=== PATIENT | female | born 1990 | race Caucasian/White ===

== ENCOUNTER 2022-10-13 01:20 | Inpatient (IN) ==
--- NOTE | 2022-10-13 01:26 | Emergency Department Note ---
History of Present Illness General Chief complaint: Respiratory Problems Stated complaint: HAVING A HARD TIME BREATHING Time Seen by Provider: 10/13/22 01:24 History of Present Illness This 32-year-old female patient presents to the emergency department for difficulty breathing since yesterday. She has also been feeling "under the weather" like she is getting sick since yesterday. Mild cough. Fever 101 F max at home. She has a pulse ox at home and it was 84%, but improved to 94% after rest. Her SOB is worse with movement or any exertion. She has a history of wheezing and used her albuterol inhaler at home, but it only worked for about 1 hour. Quit smoking in July. Has a history of Von-Willebrand's. The patient denies recent long car or plane rides or recent injury/trauma/surgery. Denies any personal or family history of blood clots or bleeding disorders. Denies any hormonal medication use. Denies any hemoptysis or calf pain. Denies any chest pain, abdominal pain, nausea, or vomiting. Took a home COVID test that was negative. Home Medications Medication Instructions Recorded Confirmed Type albuterol sulfate 90 mcg/actuation 2 puff inhalation Q6 PRN Shortness 10/13/22 10/13/22 History aerosol inhaler Of Breath Or Wheezing Allergies Allergy/AdvReac Type Severity Reaction Status Date / Time Penicillins Allergy Intermediate Rash Verified 03/17/21 00:58 Sulfa (Sulfonamide Allergy Intermediate Rash Verified 03/17/21 00:58 Antibiotics) Past Med/Surg History Medical History Actinic keratosis Anxiety Chronic back pain Elevated TSH Von Willebrands disease diagnosed at age 7 Surgical History History of back surgery x 2 S/P exploratory laparotomy S/P tonsillectomy Social History Smoking Status: Former smoker Tobacco Type: Cigarettes Age Started Using Tobacco: 12; packs per day: 0.5; Hx Alcohol Use: Yes Alcohol Intake Frequency: Monthly or Less Hx Substance Use: No Preferred Language: Occitan marital status: Single Current Living Situation: Other Current Living Situation Comment: boyfriend current occupational status: employed current occupation: Nurse Feels Safe at Home: Yes Childhood Exposure to Second-Hand Smoke: Yes Dental Care, Regularly: Yes Physical Activity Frequency: Daily Physical Activity Frequency Comment: working Seatbelt Use: always Sunscreen Use: Yes Review of Systems See HPI for pertinent positives & negatives. Physical Exam Vital Signs Vital Signs - 24 hr 10/13/22 01:22 10/13/22 01:39 10/13/22 01:50 Temperature 36.5 C Temperature Source Temporal Artery Scan Pulse Rate 96 H 123 H Pulse Rate [Right Finger] Pulse Rate from SpO2 Sensor Pulse Rhythm Regular Respiratory Rate 24 Respiratory Effort / Characteristics Spontaneous Labored Short of Breath SOB on Exertion Respiratory Depth Shallow Respiratory Pattern Regular Blood Pressure 155/88 H Blood Pressure Mean 110 Blood Pressure Position Sitting Pulse Oximetry 98 Oxygen Delivery Method Room Air Sepsis Recent Fever Within 48 Hours Yes Sepsis New/Unexplained Change in Mental Status No Sepsis Action Taken by Nursing No Action Required 10/13/22 02:01 10/13/22 02:21 10/13/22 02:30 Temperature Temperature Source Pulse Rate 113 H 121 H 114 H Pulse Rate [Right Finger] Pulse Rate from SpO2 Sensor 123 H 113 H Pulse Rhythm Respiratory Rate 25 H 20 16 Respiratory Effort / Characteristics Respiratory Depth Respiratory Pattern Blood Pressure 121/73 136/76 Blood Pressure Mean 89 96 Blood Pressure Position Pulse Oximetry 91 96 96 Oxygen Delivery Method Room Air Room Air Room Air Sepsis Recent Fever Within 48 Hours Sepsis New/Unexplained Change in Mental Status Sepsis Action Taken by Nursing 10/13/22 03:01 10/13/22 03:40 10/13/22 03:30 Temperature Temperature Source Pulse Rate 115 H 129 H Pulse Rate [Right Finger] 119 H Pulse Rate from SpO2 Sensor 115 H 131 H Pulse Rhythm Respiratory Rate 23 18 16 Respiratory Effort / Characteristics Spontaneous Short of Breath Respiratory Depth Respiratory Pattern Blood Pressure 174/94 H 176/99 H Blood Pressure Mean 120 124 Blood Pressure Position Pulse Oximetry 95 95 96 Oxygen Delivery Method Room Air Room Air Nebulizer Sepsis Recent Fever Within 48 Hours Sepsis New/Unexplained Change in Mental Status Sepsis Action Taken by Nursing 10/13/22 04:00 10/13/22 04:30 10/13/22 05:00 Temperature Temperature Source Pulse Rate 116 H 120 H 125 H Pulse Rate [Right Finger] Pulse Rate from SpO2 Sensor 116 H 119 H 125 H Pulse Rhythm Respiratory Rate 20 24 21 Respiratory Effort / Characteristics Respiratory Depth Respiratory Pattern Blood Pressure 147/73 H 139/78 135/58 L Blood Pressure Mean 97 98 83 Blood Pressure Position Pulse Oximetry 99 95 91 Oxygen Delivery Method Room Air Room Air Sepsis Recent Fever Within 48 Hours Sepsis New/Unexplained Change in Mental Status Sepsis Action Taken by Nursing 10/13/22 05:30 10/13/22 05:59 10/13/22 06:17 Temperature Temperature Source Pulse Rate 122 H 123 H Pulse Rate [Right Finger] 120 H Pulse Rate from SpO2 Sensor 123 H Pulse Rhythm Respiratory Rate 21 18 Respiratory Effort / Characteristics Spontaneous Short of Breath Respiratory Depth Respiratory Pattern Blood Pressure 136/58 L Blood Pressure Mean 84 Blood Pressure Position Pulse Oximetry 90 91 Oxygen Delivery Method Room Air Room Air Sepsis Recent Fever Within 48 Hours Sepsis New/Unexplained Change in Mental Status Sepsis Action Taken by Nursing Vital Signs: Vitals are noted on the nurse's note and reviewed by myself. GENERAL: The patient is in moderate respiratory distress. She is having trouble walking without getting very short of breath. She is also unable to talk in complete sentences due to her shortness of breath. Non toxic in appearance and in no acute distress. SKIN: Capillary reflex less than 2 seconds. HEAD: Normocephalic, atraumatic. EARS: External auditory canals clear, tympanic membrane pearly vásquez without erythema or effusion. No tragus tenderness. No mastoid tenderness. EYES: Pupils equal round and reactive to light and accommodation. Conjunctivae without injection, sclerae without icterus. Extraocular movements intact. NOSE: Patent, turbinates inflamed with no discharge. No sinus tenderness. MOUTH: Mucous membranes moist. Airway patent, uvula midline. Tonsils are not enlarged and not erythematous without exudate. Pharynx without postnasal drip. No evidence for peritonsillar abscess. NECK: Supple without nuchal rigidity. No lymphadenopathy.. HEART: Tachycardic without murmurs gallops or rubs. LUNGS: The patient is in moderate respiratory distress. She has accessory muscle use and retractions. She is tachypneic. She is unable to walk without significant shortness of breath. Unable to speak in complete sentences. Wheezes throughout all lung muñoz as well as audible wheezing. No rales or rhonchi. ABDOMEN: Positive bowel sounds x 4. Normal tympanic percussion. Soft, nontender, without masses or organomegaly. NEURO: Patient was alert and oriented to person place and time. Course Administered Medications Discontinued Medications Albuterol (Albut/Ipratrop 3mg/0.5mg Neb 3 Ml Vial) Confirm Administered Dose 3 ml .ROUTE .STK-MED ONE Stop: 10/13/22 01:33 Last Admin: 10/13/22 01:43 Dose: 3 ml Documented By: SABINE Albuterol (Albut/Ipratrop 3mg/0.5mg Neb 3 Ml Vial) 3 ml NEB NOW STA; Protocol Stop: 10/13/22 01:51 Last Admin: 10/13/22 02:00 Dose: 3 ml Documented By: SABINE Albuterol (Albut/Ipratrop 3mg/0.5mg Neb 3 Ml Vial) 3 ml NEB NOW STA; Protocol Stop: 10/13/22 01:51 Last Admin: 10/13/22 02:27 Dose: Not Given Documented By: SABINE Albuterol (Albuterol 0.083% Nebu Soln 3 Ml Vial) 10 mg NEB NOW STA; Protocol Stop: 10/13/22 03:24 Last Admin: 10/13/22 03:40 Dose: 10 mg Documented By: SANJUANITA Albuterol (Albuterol 0.083% Nebu Soln 3 Ml Vial) 10 mg NEB NOW STA; Protocol Stop: 10/13/22 06:03 Last Admin: 10/13/22 06:15 Dose: 10 mg Documented By: SANJUANITA Sodium Chloride (Nss 1000ml) 1,000 mls @ 999 mls/hr IV .Q1H1M ONE Stop: 10/13/22 02:41 Last Infusion: 10/13/22 03:02 Dose: 0 mls/hr Documented By: Admin: 10/13/22 02:00 Dose: 999 mls/hr Documented By: SABINE Sodium Chloride (Nss 1000ml) 1,000 mls @ 999 mls/hr IV .Q1H1M STA Stop: 10/13/22 07:00 Last Admin: 10/13/22 06:23 Dose: 999 mls/hr Documented By: SABINE Methylprednisolone (Methylprednisolone 125 Mg/2 Ml Vial) 125 mg IV NOW STA Stop: 10/13/22 02:30 Last Admin: 10/13/22 02:35 Dose: 125 mg Documented By: SABINE Medical Decision Making Differential Diagnosis Differential diagnosis includes URI, bronchitis, pneumonia, pneumothorax, hemot horax, PE, KS, pericarditis, myocarditis, airway obstruction, aspiration, pulmonary edema, asthma, COPD, CHF, pleurisy, metabolic acidosis, anemia, neoplasm, or others. Laboratory Data Attestation: I reviewed the patient's lab results. 10/13/22 01:56 10/13/22 01:56 Lab Results 10/13/22 10/13/22 10/13/22 Range/Units 01:56 01:56 01:56 WBC 12.45 H (4.8-10.8) K/ul RBC 4.43 (4.20-5.40) M/uL Hgb 13.4 (12.0-16.0) g/dl Hct 38.9 (37.0-47.0) % MCV 87.8 (80.0-100.0) fL MCH 30.2 (25.0-34.0) pg MCHC 34.4 (32.0-36.0) g/dL RDW Std Deviation 41.2 (36.4-46.3) fL RDW Coeff of Vinnie 13.0 (11.5-14.5) % Plt Count 273 (130-400) K/uL MPV 10.2 (9.4-12.4) fL Immature Gran % (Auto) 0.4 % Neut % (Auto) 81.5 % Lymph % (Auto) 11.5 % [place] % (Auto) 5.3 % Eos % (Auto) 1.0 % Baso % (Auto) 0.3 % Neut # (Auto) 10.14 H (1.40-6.50) K/uL Lymph # (Auto) 1.43 (1.2-3.4) K/uL [place] # (Auto) 0.66 H (0.11-0.59) K/uL Eos # (Auto) 0.13 (0-0.50) K/uL Baso # (Auto) 0.04 (0-0.2) K/uL Immature Gran # (Auto) 0.05 (0.01-0.20) K/uL Sodium 136 (136-145) mmol/L Potassium 3.8 (3.5-5.1) mmol/L Chloride 104 (98-107) mmol/L Carbon Dioxide 22 (21-32) mmol/L Anion Gap 10 (3-11) BUN 8 (6-23) mg/dl Creatinine 0.56 L (0.6-1.2) mg/dl Est Cr Clr Drug Dosing 194.9 ml/min Est GFR ( Amer) 143.0 ml/min Est GFR (Non-Af Amer) 123.4 ml/min BUN/Creatinine Ratio 14.3 (10-20) Glucose 96 (70-99(Fasting)) mg/dl Calcium 8.8 (8.6-10.3) mg/dl Magnesium 1.6 L (1.7-2.4) mg/dl Total Bilirubin 0.5 (0.2-1.0) mg/dl AST 36 (13-39) U/L ALT 39 (7-52) U/L Alkaline Phosphatase 95 (34-104) U/L Total Protein 7.8 (6.0-8.3) gm/dl Albumin 4.3 (3.4-5.0) gm/dl Globulin 3.5 (2.5-4.0) gm/dl Albumin/Globulin Ratio 1.2 (0.9-2) TSH (0.300-4.500) uIu/ml Free T4 (0.61-1.60) ng/dl Urine Color Yellow Urine Appearance Clear (Clear) Urine pH 6.0 (4.5-7.5) Ur Specific [place] 1.005 (1.000-1.030) Urine Protein Negative (Negative) Urine Glucose (UA) Negative (Negative) Urine Ketones Negative (Negative) Urine Blood Negative (Negative) Urine Nitrite Negative (Negative) Urine Bilirubin Negative (Negative) Urine Urobilinogen Negative (Negative) Ur Leukocyte Esterase Negative (Negative) Urine Test (Negative) Adenovirus (PCR) (NotDetected) B. pertussis DNA (PCR) (NotDetected) B.parapertussis DNA PCR (NotDetected) C. pneumoniae DNA (PCR) (NotDetected) Coronavirus OC43 (PCR) (NotDetected) Coronavirus HKU1 (PCR) (NotDetected) Coronavirus 229E (PCR) (NotDetected) SARS-CoV-2 (PCR) (NotDetected) Coronavirus NL63 (PCR) (NotDetected) Human Metapneumovir PCR (NotDetected) Influenza Type A (PCR) (NotDetected) Influenza Type B (PCR) (NotDetected) M. pneumoniae (PCR) (NotDetected) Parainfluenza 1 (PCR) (NotDetected) Parainfluenza 2 (PCR) (NotDetected) Parainfluenza 3 (PCR) (NotDetected) Parainfluenza 4 (PCR) (NotDetected) RSV (PCR) (NotDetected) Entero/Rhino (PCR) (NotDetected) 10/13/22 10/13/22 10/13/22 Range/Units 01:56 01:56 02:37 WBC (4.8-10.8) K/ul RBC (4.20-5.40) M/uL Hgb (12.0-16.0) g/dl Hct (37.0-47.0) % MCV (80.0-100.0) fL MCH (25.0-34.0) pg MCHC (32.0-36.0) g/dL RDW Std Deviation (36.4-46.3) fL RDW Coeff of Vinnie (11.5-14.5) % Plt Count (130-400) K/uL MPV (9.4-12.4) fL Immature Gran % (Auto) % Neut % (Auto) % Lymph % (Auto) % [place] % (Auto) % Eos % (Auto) % Baso % (Auto) % Neut # (Auto) (1.40-6.50) K/uL Lymph # (Auto) (1.2-3.4) K/uL [place] # (Auto) (0.11-0.59) K/uL Eos # (Auto) (0-0.50) K/uL Baso # (Auto) (0-0.2) K/uL Immature Gran # (Auto) (0.01-0.20) K/uL Sodium (136-145) mmol/L Potassium (3.5-5.1) mmol/L Chloride (98-107) mmol/L Carbon Dioxide (21-32) mmol/L Anion Gap (3-11) BUN (6-23) mg/dl Creatinine (0.6-1.2) mg/dl Est Cr Clr Drug Dosing ml/min Est GFR ( Amer) ml/min Est GFR (Non-Af Amer) ml/min BUN/Creatinine Ratio (10-20) Glucose (70-99(Fasting)) mg/dl Calcium (8.6-10.3) mg/dl Magnesium (1.7-2.4) mg/dl Total Bilirubin (0.2-1.0) mg/dl AST (13-39) U/L ALT (7-52) U/L Alkaline Phosphatase (34-104) U/L Total Protein (6.0-8.3) gm/dl Albumin (3.4-5.0) gm/dl Globulin (2.5-4.0) gm/dl Albumin/Globulin Ratio (0.9-2) TSH 7.570 H (0.300-4.500) uIu/ml Free T4 0.83 (0.61-1.60) ng/dl Urine Color Urine Appearance (Clear) Urine pH (4.5-7.5) Ur Specific [place] (1.000-1.030) Urine Protein (Negative) Urine Glucose (UA) (Negative) Urine Ketones (Negative) Urine Blood (Negative) Urine Nitrite (Negative) Urine Bilirubin (Negative) Urine Urobilinogen (Negative) Ur Leukocyte Esterase (Negative) Urine Test Negative (Negative) Adenovirus (PCR) Not Detected (NotDetected) B. pertussis DNA (PCR) Not Detected (NotDetected) B.parapertussis DNA PCR Not Detected (NotDetected) C. pneumoniae DNA (PCR) Not Detected (NotDetected) Coronavirus OC43 (PCR) Not Detected (NotDetected) Coronavirus HKU1 (PCR) Not Detected (NotDetected) Coronavirus 229E (PCR) Not Detected (NotDetected) SARS-CoV-2 (PCR) Not Detected (NotDetected) Coronavirus NL63 (PCR) Not Detected (NotDetected) Human Metapneumovir PCR Not Detected (NotDetected) Influenza Type A (PCR) Not Detected (NotDetected) Influenza Type B (PCR) Not Detected (NotDetected) M. pneumoniae (PCR) Not Detected (NotDetected) Parainfluenza 1 (PCR) Not Detected (NotDetected) Parainfluenza 2 (PCR) Not Detected (NotDetected) Parainfluenza 3 (PCR) Not Detected (NotDetected) Parainfluenza 4 (PCR) Not Detected (NotDetected) RSV (PCR) Not Detected (NotDetected) Entero/Rhino (PCR) DETECTED A* (NotDetected) Imaging Data My Impression: Chest x-ray interpreted by myself and Dr. Anderson as negative for acute cardiopulmonary etiology. Radiology report still pending. MDM Narrative I examined the patient as soon as the patient was taken back to a room from triage. The patient is in moderate respiratory distress. The patient states that she has never officially been diagnosed with asthma, but has used albuterol frequently in the past for wheezing and trouble breathing. Continuous pulse ox was placed and she was tachycardic at 144 bpm, tachypneic, and hypoxic at 77% on room air. The patient was given a DuoNeb treatment with improvement of her heart rate to 122 and improvement of her pulse ox to 93% shortly after starting the DuoNeb treatment. After completion of the DuoNeb treatment I rechecked her lungs with significant improvement of her wheezing, but persisting scattered wheezes. Her retractions resolved, but she still had accessory muscle use. Still having trouble talking complete sentences, but was able to increase the nu mber of words she was able to say before getting short of breath. She now appeared in mild respiratory distress. She was given a second DuoNeb treatment with resolution of the wheezing and significant improvement subjectively as well as objectively. The patient was given Solu-Medrol 125 mg IV. Now that the patient was no longer in respiratory distress, the remainder of the workup was initiated. Continuous compliance monitor: Order was placed for continuous compliance monitor. Patient was placed on the compliance monitor and continuous pulse ox. Patient was noted to be in sinus tachycardia at an initial rate of 122 bpm per my interpretation. An IV lock was placed and labs were drawn. She was given 1 L normal saline solution bolus. White blood cell count elevated at 12.45. Hemoglobin normal at 13.4. CMP essentially normal. Magnesium slightly low at 1.6. TSH elevated at 7.570 - she states that she has not been taking her medication as prescribed. Urinalysis negative for UTI. Urine test negative. [facility] respiratory panel was positive for rhinovirus, but otherwise negative. Chest x-ray interpreted by myself and Dr. Anderson as negative for acute cardiopulmonary etiology. Radiology report still pending. The patient's wheezing and shortness of breath returned despite the 2 DuoNeb treatments and Solu-Medrol. Therefore, she was given an hour-long albuterol nebulizer. She did feel improved after the hour-long nebulizer, but symptoms only lasted for approximately 15 to 20 minutes before she started to feel short of breath and feel like her breathing was becoming worse. The patient was able to produce a sputum culture which was sent and is pending. The patient declined CTA of her chest for evaluation of PE or other cardiopulmonary etiology. The patient does have a history of von Willebrand's and otherwise denies risk factors for PE. The patient is tachycardic and was initially hypoxic secondary to the asthma exacerbation. She did remain tachycardic, but has also had 2 DuoNeb treatments as well as an hour-long albuterol nebulizer. I had a meaning ful discussion about this patient with Dr. Anderson who agrees with my assessment and the treatment plan. We feel the patient requires admission for further evaluation and treatment due to status asthmaticus that was likely triggered due to her rhinovirus infection. I spoke to the on-call hospitalist who agreed to admit the patient for further evaluation and treatment. Please refer to their dictation for further details. The patient did request another hour-long albuterol nebulizer prior to admission due to return of her wheezing on exam and increasing shortness of breath. The patient's care was transferred in stable condition. Impression & Plan Shortness of breath, Von Willebrands disease, Diffuse wheezing Discharge Plan Visit Data Chief Complaint: Respiratory Problems Stated Complaint: HAVING A HARD TIME BREATHING ED Provider: Maciej Anderson ED Midlevel Provider: Chayito Lemus Discharge Problem: Shortness of breath, Von Willebrands disease, Diffuse wheezing Patient Disposition: Admitted As Inpatient Condition: Good Forms Stand Alone Forms: My [employer] Prescriptions Prescriptions: No Action albuterol sulfate 90 mcg/actuation HFA aerosol inhaler 2 puff INHALATION Q6 PRN (Reason: Shortness Of Breath Or Wheezing) Referrals Referrals: Kash Brennan CRNP [Primary Care Provider] -
[2022-10-13] MEDS ORDERED: ALBUT/IPRATROP 3MG/0.5MG NEB 3 ML VIAL ONE (01:32)
[2022-10-13] MEDS ORDERED: SODIUM CHLORIDE 0.9% 1000ML 1,000 ML IV ONE (01:41)
[2022-10-13] MEDS ORDERED: ALBUT/IPRATROP 3MG/0.5MG NEB 3 ML VIAL NEB STA ×2 (01:50)
[2022-10-13] MEDS ORDERED: methylPREDNISolone 125 MG/2 ML VIAL IV STA (02:29)
[2022-10-13 02:42] LABS: Appearance Urine Clear (Clear); Bilirubin Urine Negative (Negative); Blood Urine Negative (Negative); Color Urine Yellow; Glucose Urine UA Negative (Negative); Ketones Urine Negative (Negative); Leukocyte Esterase Urine Negative (Negative); Nitrite Urine Negative (Negative); Protein Urine Negative (Negative); Specific Gravity Urine 1.005 (1.000-1.030); Urobilinogen Urine Negative (Negative)
[2022-10-13 02:45] LABS: Pregnancy Test, Urine Negative (Negative)
[2022-10-13 02:58] LABS: Basophils # (auto) 0.04 K/uL (0-0.2); Basophils % (auto) 0.3 %; Eosinophils # (auto) 0.13 K/uL (0-0.50); Hematocrit (blood only) 38.9 % (37.0-47.0); Hemoglobin 13.4 g/dl (12.0-16.0); Immature Granulocytes # (auto) 0.05 K/uL (0.01-0.20); Immature Granulocytes % (auto) 0.4 %; Lymphocytes # (auto) 1.43 K/uL (1.2-3.4); Lymphocytes % (auto) 11.5 %; Mean Corpuscular Hemoglobin 30.2 pg (25.0-34.0); Mean Corpuscular Hgb Conc 34.4 g/dL (32.0-36.0); Mean Corpuscular Volume 87.8 fL (80.0-100.0); Mean Platelet Volume 10.2 fL (9.4-12.4); Monocytes # (auto) 0.66 K/uL (0.11-0.59); Monocytes % (auto) 5.3 %; Neutrophils # (auto) 10.14 K/uL (1.40-6.50); Neutrophils % (auto) 81.5 %; Platelet Count 273 K/uL (130-400); RDW Standard Deviation 41.2 fL (36.4-46.3); Red Blood Count 4.43 M/uL (4.20-5.40); White Blood Count 12.45 K/ul (4.8-10.8)
[2022-10-13 03:01] LABS: Albumin Globulin Ratio 1.2 (0.9-2); Albumin Level 4.3 gm/dl (3.4-5.0); BUN Creatinine Ratio 14.3 (10-20); Bilirubin,Total 0.5 mg/dl (0.2-1.0); Calcium 8.8 mg/dl (8.6-10.3); Creatinine Clr Calc Pharmacy 194.9 ml/min; Est GFR (Non-African American) 123.4 ml/min; Globulin 3.5 gm/dl (2.5-4.0); Magnesium 1.6 mg/dl (1.7-2.4); Potassium 3.8 mmol/L (3.5-5.1); Total Protein 7.8 gm/dl (6.0-8.3)
[2022-10-13] MEDS ORDERED: ALBUTEROL 0.083% NEBU SOLN 3 ML VIAL NEB STA ×2 (03:23→06:02)
[2022-10-13 03:29] LABS: Adenovirus PCR Not Detected (NotDetected); Bordetella parapertussis PCR Not Detected (NotDetected); Bordetella pertussis PCR Not Detected (NotDetected); Chlamydia pneumoniae PCR Not Detected (NotDetected); Coronavirus 229E PCR Not Detected (NotDetected); Coronavirus CoV-2 (COVID19)PCR Not Detected (NotDetected); Coronavirus HKU1 PCR Not Detected (NotDetected); Coronavirus NL63 PCR Not Detected (NotDetected); Coronavirus OC43PCR Not Detected (NotDetected); Human Metapneumovirus PCR Not Detected (NotDetected); Influenza A PCR Not Detected (NotDetected); Influenza B PCR Not Detected (NotDetected); Mycoplasma pneumoniae PCR Not Detected (NotDetected); Parainfluenza Virus 1 PCR Not Detected (NotDetected); Parainfluenza Virus 2 PCR Not Detected (NotDetected); Parainfluenza Virus 3 PCR Not Detected (NotDetected); Parainfluenza Virus 4 PCR Not Detected (NotDetected); Respiratory Syncytial VirusPCR Not Detected (NotDetected)
[2022-10-13 04:34] LABS: Thyroid Stimulating Hormone 7.57 uIu/ml (0.300-4.500)
[2022-10-13 04:45] LABS: Rhinovirus/Enterovirus PCR DETECTED (NotDetected)
[2022-10-13 05:15] LABS: T4 Free Thyroxine 0.83 ng/dl (0.61-1.60)
--- NOTE | 2022-10-13 05:52 | History & Physical Report ---
Date of Service October 13, 2022 Assessment & Plan (1) Sepsis: Plan: Elevated WBC count and tachycardia, meets criteria for sepsis. Suspected secondary to pulmonary infection, possibly 2/2 rhinoenterovirus infection? UA without evidence of infection. Sputum culture and blood cultures collected. Lactate and procal ordered by this provider, pending. Given fevers at home and tachycardia will also give another 1L NSS bolus to account for insensible losses. Also could have CAP, for now will cover with ceftriaxone/azithromycin. Procalcitonin pending. MRSA swab ordered, can add vancomycin if positive. Offered CTA Chest both to evaluate for remote possibility of PE (tachycardia, SOB, hypoxia at home), as well as pneumonia not well visualized on CXR. Patient declines at this time, due to concern about not having insurance. We discussed that I would have a low threshold for imaging if her symptoms continue without improvement with Abx, breathing treatments (Duonebs scheduled and prn), and steroids (methylpred 40 IV BID), which she agreed to. Also provided information in insurance by ER Case Management. (2) Shortness of breath: Plan: See above (3) Von Willebrands disease: Plan: History of, would be highly unlikely to have PE with Hx vWD, however not impossible. Telemetry shows tachycardia, regular appearing. EKG ordered. (4) Elevated TSH: Plan: TSH elevated but FT4 normal on ER labwork; defer levothyroxine to PCP. History of Present Illness Chief Complaint: Shortness of breath Primary Care Provider: TIA Almaguer 32-year-old female past medical history significant for von Willebrand's disease, anxiety presented to the ER for shortness of breath that has developed over the last 48 hours. She tried her albuterol inhaler at home, however, this provided very short relief. She also notes that she has a pulse ox at home, and went down into the mid 80s with ambulation. Due to this, she reported to the ER. In the ER patient was noted to be tachycardic, saturating to 90% on room air. Received IV methylprednisolone and albuterol nebulizers by ER provider, as well as 1 L of saline. Lab work notable for WBC count of 12.45 with neutrophilic predominance, magnesium 1.6, TSH 7.570 with a free T4 of 0.83. UA without evidence of infection, respiratory bio fire positive for rhino en terovirus. Chest x-ray performed without obvious focal consolidation. Hospitalist service was consulted for ongoing dyspnea. Patient reports a history of smoking daily starting at age 15, and quitting about 3 months ago. She denies any known history of asthma, but does endorse that she has had profound wheezing and trouble breathing in the past with viral infections. She notes that she does not have insurance and is worried about the cost of escalated imaging such as CT scan. She denies chest pain, abdominal pain, nausea. She does endorse fevers at home in the last couple of days. Allergies Allergy/AdvReac Type Severity Reaction Status Date / Time Penicillins Allergy Intermediate Rash Verified 03/17/21 00:58 Sulfa (Sulfonamide Allergy Intermediate Rash Verified 03/17/21 00:58 Antibiotics) Home Medications Medication Instructions Recorded Confirmed Type albuterol sulfate 90 mcg/actuation 2 puff inhalation Q6 PRN Shortness 10/13/22 10/13/22 History aerosol inhaler Of Breath Or Wheezing Past Med/Surg History Medical History Actinic keratosis Anxiety Chronic back pain Elevated TSH Von Willebrands disease diagnosed at age 7 Surgical History History of back surgery x 2 S/P exploratory laparotomy S/P tonsillectomy Social History Smoking Status: Former smoker Tobacco Type: Cigarettes Age Started Using Tobacco: 12; packs per day: 0.5; Hx Alcohol Use: Yes Alcohol Intake Frequency: Monthly or Less Hx Substance Use: No Preferred Language: Iraqi marital status: Single Current Living Situation: Other Current Living Situation Comment: boyfriend current occupational status: employed current occupation: Nurse Feels Safe at Home: Yes Childhood Exposure to Second-Hand Smoke: Yes Dental Care, Regularly: Yes Physical Activity Frequency: Daily Physical Activity Frequency Comment: working Seatbelt Use: always Sunscreen Use: Yes Review of Systems Review of Systems: All systems reviewed & are unremarkable except as noted in Subjective Physical Exam Constitutional: WD/WN, vitals as above Respiratory: Normal respiratory effort, diffuse expiratory wheezes heard throughout, bibasilar crackles Cardiovascular: Regular rhythm, tachycardic, no murmurs, no pitting edema Gastrointestinal (Abdomen): normal bowel sounds, soft, nontender, no hepatosplenomegaly Skin: no rashes, warm and dry Psychiatric: A+Ox3, euthymic affect Results & Data Results & Data Vital Signs (Past 12 Hours) Vital Signs Temp Pulse Pulse Resp BP Pulse Ox O2 Del Method 10/13/22 05:30 122 H 21 136/58 L 90 Room Air 10/13/22 05:00 125 H 21 135/58 L 91 Room Air 10/13/22 04:30 120 H 24 139/78 95 Room Air 10/13/22 04:00 116 H 20 147/73 H 99 10/13/22 03:30 129 H 16 176/99 H 96 Nebulizer 10/13/22 03:40 119 H 18 95 Room Air 10/13/22 03:01 115 H 23 174/94 H 95 Room Air 10/13/22 02:30 114 H 16 136/76 96 Room Air 10/13/22 02:21 121 H 20 121/73 96 Room Air 10/13/22 02:01 113 H 25 H 91 Room Air 10/13/22 01:50 123 H 10/13/22 01:22 36.5 C 96 H 24 155/88 H 98 Room Air PG Care Time/CCT Total # of Minutes Spent Total Time Spent with Patient: Total time spent is greater than 50% in coordination of care (as documented) at patient's floor/unit and/or counseling patient: Coding Level of Care Code 27279 INT INP/OBS CARE 3/75MIN Diagnoses Sepsis A41.9 Shortness of breath R06.02 Von Willebrands disease D68.0 Elevated TSH R79.89
[2022-10-13] MEDS ORDERED: SODIUM CHLORIDE 0.9% 1000ML 1,000 ML IV STA (06:00)
--- NOTE | 2022-10-13 07:31 | XRay Report ---
XR chest 1V portable CLINICAL HISTORY: Dyspnea, COMPARISON STUDY: Chest radiograph March 17, 2021. FINDINGS: Lung volumes are normal. There is no pneumothorax or pleural effusion. Cardiac size is norm al. There is asymmetric prominence of the left hilum and suspected mild multifocal airspace opacities within the left lung. There is no lobar consolidation. There is no evidence for pulmonary edema. IMPRESSION: 1. Suspected subtle asymmetric left lung airspace opacities. The findings may reflect pneumonia. Radi ographic follow-up is recommended to ensure resolution. This finding will be called/faxed to ordering provider at time of dictation. 2. Interval development of asymmetric prominence of the left hilum. This is nonspecific but could be due to lymphadenopathy or superimposed airspace disease. This can be assessed on follow-up chest radi ograph. ACT 112: Negative or not required by law. Electronically signed by: Don Holbrook M.D. 10/13/2022 7:29 AM
[2022-10-13] MEDS ORDERED: MAGNESIUM SULFATE / D5W 1 GM/100 ML BAG IV ONE (08:45)
[2022-10-13] MEDS: SODIUM CHLORIDE 0.9% 1000ML 1,000 ML IV SCH ×2 (09:20→18:43)
[2022-10-13] MEDS: methylPREDNISolone 40 MG in SYRINGE 0 ML IV SCH ×2 (09:20→20:51)
[2022-10-13] MEDS: cefTRIAXone SODIUM 2,000 MG in DEXTROSE 5% AD-VAN 50 ML IV SCH (09:20)
[2022-10-13] MEDS: AZITHROMYCIN 500 MG in DEXTROSE 5% 250 ML IV SCH (09:50)
[2022-10-13] MEDS: ALBUT/IPRATROP 3MG/0.5MG NEB 3 ML VIAL NEB SCH ×2 (10:18→20:06)
--- NOTE | 2022-10-13 10:19 | CT Scan Report ---
CT OF THE CHEST WITHOUT IV CONTRAST CLINICAL HISTORY: Sepsis. Shortness of breath. COMPARISON STUDY: Chest radiograph performed earlier today. CT DOSE: 1156.02 mGy.cm TECHNIQUE: Axial images of the chest were obtained without IV contrast. Images were reviewed in the axial, sagittal, and coronal planes. IV contrast was not administered for this examination. Automat ed exposure control was utilized for the study. A dose lowering technique was utilized adhering to t he principles of ALARA. FINDINGS: The size of the heart is normal. There is no pericardial effusion. There are multiple mild ly enlarged mediastinal and bilateral hilar lymph nodes. Index subcarinal lymph node on image 128 of 306 measures 3.8 x 1.8 cm. The hilar nodes are difficult to measure on this unenhanced examination. T here is no pneumothorax or pleural effusion. Mild bronchial wall thickening is noted. There are multi focal subpleural groundglass and linear opacities within the lungs. These correspond to the opacities shown on chest radiograph. There is no lobar consolidation. There is no cavitation. No acute fractur es within the bony thorax are identified. Size of the spleen is at upper limits of normal. There is p robable hepatic steatosis. IMPRESSION: 1. Multifocal subpleural groundglass opacities which favor an infectious process such as bronchioliti s or developing bronchopneumonia. Associated linear densities may reflect atelectasis. 2. Diffuse bronchial wall thickening. This may reflect bronchitis. 3. Multiple mildly enlarged mediastinal and bilateral hilar lymph nodes. This lymphadenopathy is nons pecific and may be reactive. Additional less likely differential considerations include a granulomato us process such as sarcoidosis or a lymphoproliferative process. Follow up chest CT in 3 months to en sure resolution is recommended. ACT 112: Negative or not required by law. Electronically signed by: Don Holbrook M.D. 10/13/2022 10:17 AM
[2022-10-13] MEDS: ALBUT/IPRATROP 3MG/0.5MG NEB 3 ML VIAL NEB PRN (13:04)
--- NOTE | 2022-10-13 14:05 | Hospitalist Progress Note ---
Date of Service October 13, 2022 Assessment & Plan (1) Sepsis: Plan: Elevated WBC count and tachycardia, meets criteria for sepsis. Suspected secondary to pulmonary infection, possibly 2/2 rhinoenterovirus infection UA without evidence of infection. Sputum culture and blood cultures collected. Lactic acid elevated at 5 Continue hydration intravenously Chest x-ray and CT chest show pneumonia Covered with ceftriaxone and azithromycin for community-acquired pneumonia Clinically improving Continue DuoNebs, steroids (2) Shortness of breath: Plan: See above (3) Von Willebrands disease: Plan: History of, would be highly unlikely to have PE with Hx vWD (4) Elevated TSH: Plan: TSH elevated but FT4 normal on ER labwork; defer levothyroxine to PCP. (5) Pneumonia, viral: Plan: Viral panel positive for entero-/rhinovirus Chest x-ray and CT chest suggestive of pneumonia Supportive treatment Cover with IV ceftriaxone and azithromycin for bacterial superimposition Admission and Anticipated Discharge Date Admission Date: October 13, 2022 Subjective Patient says that she feels better with the oxygen on. Denies chest pain. Breathing better now. Denies dizziness or lightheadedness. Review of Systems Review of Systems: All systems reviewed & are unremarkable except as noted in Subjective Physical Exam Physical Exam: General: Awake, conversant, obese Heart: S1, S2/regular rate and rhythm, no murmur rubs or gallops Lungs: Clear to auscultation bilaterally. Normal effort Abdomen: Soft/nontender/nondistended. No hepatosplenomegaly Extremities: No clubbing/cyanosis. No edema Behavior: Appropriate, cooperative Results & Data Results & Data Vital Signs (Past 12 Hours) Vital Signs Temp Pulse Pulse Resp BP BP Pulse Ox 10/13/22 12:01 36.9 C 111 H 20 131/77 96 10/13/22 08:09 37.3 C 118 H 23 156/80 H 93 10/13/22 10:18 110 H 20 95 10/13/22 08:09 10/13/22 08:09 37.3 C 118 H 23 156/80 H 92 10/13/22 08:35 132 H 10/13/22 07:30 130 H 17 131/52 L 96 10/13/22 07:00 130 H 18 123/64 96 10/13/22 06:30 120 H 20 95/74 L 97 10/13/22 06:00 117 H 20 131/73 98 10/13/22 06:17 120 H 18 91 10/13/22 05:59 123 H 10/13/22 05:30 122 H 21 136/58 L 90 10/13/22 05:00 125 H 21 135/58 L 91 10/13/22 04:30 120 H 24 139/78 95 10/13/22 04:00 116 H 20 147/73 H 99 10/13/22 03:30 129 H 16 176/99 H 96 10/13/22 03:40 119 H 18 95 10/13/22 03:01 115 H 23 174/94 H 95 10/13/22 02:30 114 H 16 136/76 96 10/13/22 02:21 121 H 20 121/73 96 10/13/22 02:01 113 H 25 H 91 O2 Del Method O2 Flow Rate 10/13/22 12:01 Nasal Cannula 2 10/13/22 08:09 Room Air 10/13/22 10:18 Nasal Cannula 5 10/13/22 08:09 Room Air 10/13/22 08:09 Room Air 10/13/22 08:35 10/13/22 07:30 Room Air 10/13/22 07:00 Room Air 10/13/22 06:30 Room Air 10/13/22 06:00 Room Air 10/13/22 06:17 Room Air 10/13/22 05:59 10/13/22 05:30 Room Air 10/13/22 05:00 Room Air 10/13/22 04:30 Room Air 10/13/22 04:00 10/13/22 03:30 Nebulizer 10/13/22 03:40 Room Air 10/13/22 03:01 Room Air 10/13/22 02:30 Room Air 10/13/22 02:21 Room Air 10/13/22 02:01 Room Air Laboratory Results Abnormal lab results 10/13/22 10/13/22 10/13/22 Range/Units 01:56 01:56 01:56 WBC 12.45 H (4.8-10.8) K/ul Neut # (Auto) 10.14 H (1.40-6.50) K/uL Brantley # (Auto) 0.66 H (0.11-0.59) K/uL Creatinine 0.56 L (0.6-1.2) mg/dl Lactate (0.4-2.0) mmol/L Magnesium 1.6 L (1.7-2.4) mg/dl TSH (0.300-4.500) uIu/ml Entero/Rhino (PCR) DETECTED A* (NotDetected) 10/13/22 10/13/22 10/13/22 Range/Units 02:37 07:11 08:54 WBC (4.8-10.8) K/ul Neut # (Auto) (1.40-6.50) K/uL Brantley # (Auto) (0.11-0.59) K/uL Creatinine (0.6-1.2) mg/dl Lactate 5.3 H* 6.8 H* (0.4-2.0) mmol/L Magnesium (1.7-2.4) mg/dl TSH 7.570 H (0.300-4.500) uIu/ml Entero/Rhino (PCR) (NotDetected) Diagnostic Findings Chest X-Ray 10/13/22 01:37 XR chest 1V portable CLINICAL HISTORY: Dyspnea, COMPARISON STUDY: Chest radiograph March 17, 2021. FINDINGS: Lung volumes are normal. There is no pneumothorax or pleural effusion. Cardiac size is normal. There is asymmetric prominence of the left hilum and suspected mild multifocal airspace opacities within the left lung. There is no lobar consolidation. There is no evidence for pulmonary edema. IMPRESSION: 1. Suspected subtle asymmetric left lung airspace opacities. The findings may reflect pneumonia. Radiographic follow-up is recommended to ensure resolution. This finding will be called/faxed to ordering provider at time of dictation. 2. Interval development of asymmetric prominence of the left hilum. This is nonspecific but could be due to lymphadenopathy or superimposed airspace disease. This can be assessed on follow-up chest radiograph. ACT 112: Negative or not required by law. Electronically signed by: Don Holbrook M.D. 10/13/2022 7:[address] 10/13/22 08:47 CT OF THE CHEST WITHOUT IV CONTRAST CLINICAL HISTORY: Sepsis. Shortness of breath. COMPARISON STUDY: Chest radiograph performed earlier today. CT DOSE: 1156.02 mGy.cm TECHNIQUE: Axial images of the chest were obtained without IV contrast. Images were reviewed in the axial, sagittal, and coronal planes. IV contrast was not administered for this examination. Automated exposure control was utilized for the study. A dose lowering technique was utilized adhering to the principles of ALARA. FINDINGS: The size of the heart is normal. There is no pericardial effusion. There are multiple mildly enlarged mediastinal and bilateral hilar lymph nodes. Index subcarinal lymph node on image 128 of 306 measures 3.8 x 1.8 cm. The hilar nodes are difficult to measure on this unenhanced examination. There is no pneumothorax or pleural effusion. Mild bronchial wall thickening is noted. There are multifocal subpleural groundglass and linear opacities within the lungs. These correspond to the opacities shown on chest radiograph. There is no lobar consolidation. There is no cavitation. No acute fractures within the bony thorax are identified. Size of the spleen is at upper limits of normal. There is probable hepatic steatosis. IMPRESSION: 1. Multifocal subpleural groundglass opacities which favor an infectious process such as bronchiolitis or developing bronchopneumonia. Associated linear densities may reflect atelectasis. 2. Diffuse bronchial wall thickening. This may reflect bronchitis. 3. Multiple mildly enlarged mediastinal and bilateral hilar lymph nodes. This lymphadenopathy is nonspecific and may be reactive. Additional less likely differential considerations include a granulomatous process such as sarcoidosis or a lymphoproliferative process. Follow up chest CT in 3 months to ensure reso lution is recommended. ACT 112: Negative or not required by law. Electronically signed by: Don Holbrook M.D. 10/13/2022 10:17 AM PG Care Time/CCT Total # of Minutes Spent Total Time Spent with Patient: Total time spent is greater than 50% in coordination of care (as documented) at patient's floor/unit and/or counseling patient: Coding Level of Care Code None Diagnoses Sepsis A41.9 Shortness of breath R06.02 Von Willebrands disease D68.0 Elevated TSH R79.89 Pneumonia, viral J12.9
[2022-10-13] MEDS ORDERED: MELATONIN 3 MG TAB PO PRN (20:00)
--- NOTE | 2022-10-13 21:47 | Electrocardiogram Report ---
Test Reason : Blood Pressure : / mmHG Vent. Rate : 121 BPM Atrial Rate : 121 BPM P-R Int : 146 ms QRS Dur : 090 ms QT Int : 332 ms P-R-T Axes : 059 069 025 degrees QTc Int : 471 ms Sinus tachycardia Otherwise normal ECG When compared with ECG of 17-MAR-2021 00:07, No significant change was found Confirmed by Yusef Santos ([id number]) on 10/13/2022 9:47:10 PM Referred By: REFERRED SELF Confirmed By:Yusef Santos
[2022-10-14] MEDS: MELATONIN 3 MG TAB PO PRN ×2 (01:36→23:41)
[2022-10-14] MEDS: SODIUM CHLORIDE 0.9% 1000ML 1,000 ML IV SCH ×2 (01:37→10:06)
[2022-10-14] MEDS ORDERED: CALCIUM CARBONATE 500 MG CHEWABLE TAB PO STA (01:47)
[2022-10-14] MEDS: ALBUT/IPRATROP 3MG/0.5MG NEB 3 ML VIAL NEB SCH ×3 (02:16→19:32)
[2022-10-14] MEDS: cefTRIAXone SODIUM 2,000 MG in DEXTROSE 5% AD-VAN 50 ML IV SCH (08:03)
[2022-10-14] MEDS: methylPREDNISolone 40 MG in SYRINGE 0 ML IV SCH (08:03)
[2022-10-14] MEDS: AZITHROMYCIN 500 MG in DEXTROSE 5% 250 ML IV SCH (09:05)
[2022-10-14 09:15] LABS: Hematocrit (blood only) 35.3 % (37.0-47.0); Hemoglobin 11.8 g/dl (12.0-16.0); Mean Corpuscular Hemoglobin 30.3 pg (25.0-34.0); Mean Corpuscular Hgb Conc 33.4 g/dL (32.0-36.0); Mean Corpuscular Volume 90.7 fL (80.0-100.0); Mean Platelet Volume 9.8 fL (9.4-12.4); Platelet Count 319 K/uL (130-400); RDW Coefficient of Variation 13.8 % (11.5-14.5); RDW Standard Deviation 45.1 fL (36.4-46.3); Red Blood Count 3.89 M/uL (4.20-5.40); White Blood Count 17.39 K/ul (4.8-10.8)
[2022-10-14 09:33] LABS: Anion Gap 7 (3-11); BUN Creatinine Ratio 22.9 (10-20); Blood Urea Nitrogen 11 mg/dl (6-23); Calcium 8.8 mg/dl (8.6-10.3); Carbon Dioxide 23 mmol/L (21-32); Chloride 109 mmol/L (98-107); Est GFR (African American) > 150.0 ml/min; Est GFR (Non-African American) 129.8 ml/min; Glucose 137 mg/dl (70-99(Fasting)); Potassium 4.2 mmol/L (3.5-5.1); Sodium 139 mmol/L (136-145)
[2022-10-14] MEDS: ALBUT/IPRATROP 3MG/0.5MG NEB 3 ML VIAL NEB PRN ×2 (11:04→15:58)
--- NOTE | 2022-10-14 15:19 | Hospitalist Progress Note ---
Date of Service October 14, 2022 Assessment & Plan (1) Sepsis: Plan: Elevated WBC count and tachycardia, meets criteria for sepsis. Suspected secondary to pulmonary infection, possibly 2/2 rhinoenterovirus infection Lactic acid was initially elevated at 6, now down to 1 Discontinue IV fluids Chest x-ray and CT chest show pneumonia Covered with ceftriaxone and azithromycin for community-acquired pneumonia Clinically improving Continue DuoNebs Lower the frequency of steroids (2) Shortness of breath: Plan: See above (3) Von Willebrands disease: Plan: History of, would be highly unlikely to have PE with Hx vWD (4) Elevated TSH: Plan: TSH elevated but FT4 normal on ER labwork; defer levothyroxine to PCP. (5) Pneumonia, viral: Plan: Viral panel positive for entero-/rhinovirus Chest x-ray and CT chest suggestive of pneumonia Supportive treatment Cover with IV ceftriaxone and azithromycin for bacterial superimposition (6) Acute respiratory failure with hypoxia: Plan: Secondary to pneumonia Required oxygen on admission Was short of breath Improving with IV antibiotics Admission and Anticipated Discharge Date Admission Date: October 13, 2022 Subjective Patient feels better today. Denies chest pain. Shortness of breath is improved. Review of Systems Review of Systems: All systems reviewed & are unremarkable except as noted in Subjective Physical Exam Physical Exam: General: Awake, conversant, obese Heart: S1, S2/regular rate and rhythm, no murmur rubs or gallops Lungs: Clear to auscultation bilaterally. Normal effort Abdomen: Soft/nontender/nondistended. No hepatosplenomegaly Extremities: No clubbing/cyanosis. No edema Behavior: Appropriate, cooperative Results & Data Results & Data Vital Signs (Past 12 Hours) Vital Signs Temp Pulse Pulse Resp BP Pulse Ox O2 Del Method 10/14/22 11:20 36.6 C 106 H 20 126/80 96 Nasal Cannula 10/14/22 11:04 102 H 18 95 Nasal Cannula 10/14/22 08:00 Nasal Cannula 10/14/22 07:48 95 H 10/14/22 07:04 99 H 17 98 Nasal Cannula 10/14/22 05:00 36.8 C 96 H 18 134/76 95 Nasal Cannula O2 Flow Rate 10/14/22 11:20 2 10/14/22 11:04 1 10/14/22 08:00 2 10/14/22 07:48 10/14/22 07:04 1.5 10/14/22 05:00 2 Laboratory Results Abnormal lab results 10/14/22 10/14/22 Range/Units 09:03 09:03 WBC 17.39 H (4.8-10.8) K/ul RBC 3.89 L (4.20-5.40) M/uL Hgb 11.8 L (12.0-16.0) g/dl Hct 35.3 L (37.0-47.0) % Chloride 109 H (98-107) mmol/L Creatinine 0.48 L (0.6-1.2) mg/dl BUN/Creatinine Ratio 22.9 H (10-20) Glucose 137 H (70-99(Fasting)) mg/dl PG Care Time/CCT Total # of Minutes Spent Total Time Spent with Patient: Total time spent is greater than 50% in coordination of care (as documented) at patient's floor/unit and/or counseling patient: Coding Level of Care Code 19380 SUB INP/OBS CARE 2/35MIN Diagnoses Sepsis A41.9 Shortness of breath R06.02 Von Willebrands disease D68.0 Elevated TSH R79.89 Pneumonia, viral J12.9 Acute respiratory failure with hypoxia J96.01
[2022-10-14] MEDS: ACETAMINOPHEN 325 MG TAB PO PRN ×2 (16:24→23:41)
[2022-10-15] MEDS: ALBUT/IPRATROP 3MG/0.5MG NEB 3 ML VIAL NEB PRN ×3 (00:25→22:59)
[2022-10-15] MEDS: ALBUT/IPRATROP 3MG/0.5MG NEB 3 ML VIAL NEB SCH ×3 (04:41→19:57)
[2022-10-15] MEDS: ACETAMINOPHEN 325 MG TAB PO PRN ×3 (04:55→21:36)
[2022-10-15] MEDS ORDERED: methylPREDNISolone 40 MG in SYRINGE 0 ML IV SCH (09:00)
[2022-10-15] MEDS: cefTRIAXone SODIUM 2,000 MG in DEXTROSE 5% AD-VAN 50 ML IV SCH (09:32)
[2022-10-15] MEDS ORDERED: FUROSEMIDE 40 MG/4 ML VIAL IV ONE (10:14)
[2022-10-15] MEDS: AZITHROMYCIN 500 MG in DEXTROSE 5% 250 ML IV SCH (10:16)
--- NOTE | 2022-10-15 15:22 | Hospitalist Progress Note ---
Date of Service October 15, 2022 Assessment & Plan (1) Sepsis: Plan: Elevated WBC count and tachycardia, meets criteria for sepsis. Suspected secondary to pulmonary infection, possibly 2/2 rhinoenterovirus infection Lactic acid was initially elevated at 6, now down to 1 Discontinued IV fluids Chest x-ray and CT chest show pneumonia Covered with ceftriaxone and azithromycin for community-acquired pneumonia Clinically improving Continue DuoNebs Discontinue IV Solu-Medrol Start p.o. prednisone tomorrow (2) Shortness of breath: Plan: The patient is more short of breath this morning with bibasilar crackles She got several liters of IV fluids since admission She is most likely volume overloaded Ordered a dose of 40 mg of IV Lasix She had very good diuretic and clinical response to Lasix Check BMP in a.m. (3) Von Willebrands disease: Plan: History of, would be highly unlikely to have PE with Hx vWD (4) Elevated TSH: Plan: TSH elevated but FT4 normal on ER labwork; defer levothyroxine to PCP. (5) Pneumonia, viral: Plan: Viral panel positive for entero-/rhinovirus Chest x-ray and CT chest suggestive of pneumonia Supportive treatment Cover with IV ceftriaxone and azithromycin for bacterial superimposition (6) Acute respiratory failure with hypoxia: Plan: Secondary to pneumonia Required oxygen on admission Was short of breath Improving with IV antibiotics Short of breath today due to fluid overload Improved with IV Lasix Admission and Anticipated Discharge Date Admission Date: October 13, 2022 Subjective Patient stated to me that she is feeling worse from a breathing standpoint. She is short of breath. She is requiring more oxygen. Overnight, she woke up in the middle of the night gasping for air. Review of Systems Review of Systems: All systems reviewed & are unremarkable except as noted in Subjective Physical Exam Physical Exam: General: Awake, conversant, obese Heart: S1, S2/regular rate and rhythm, no murmur rubs or gallops Lungs: Bibasilar crackles. Normal effort Abdomen: Soft/nontender/nondistended. No hepatosplenomegaly Extremities: No clubbing/cyanosis. No edema Behavior: Appropriate, cooperative Results & Data Results & Data Vital Signs (Past 12 Hours) Vital Signs Temp Pulse Pulse Resp BP Pulse Ox O2 Del Method 10/15/22 12:11 36.8 C 114 H 22 130/79 95 Room Air 10/15/22 11:28 116 H 24 93 Nasal Cannula 10/15/22 09:00 Nasal Cannula 10/15/22 08:17 37.1 C 113 H 19 122/83 95 Room Air 10/15/22 08:13 113 H 18 94 Nasal Cannula 10/15/22 07:50 112 H 10/15/22 04:00 37.1 C 108 H 18 131/81 97 Nasal Cannula 10/15/22 04:41 111 H 16 95 Nasal Cannula O2 Flow Rate 10/15/22 12:11 10/15/22 11:28 1 10/15/22 09:00 2 10/15/22 08:17 10/15/22 08:13 3 10/15/22 07:50 10/15/22 04:00 2 10/15/22 04:41 2 PG Care Time/CCT Total # of Minutes Spent Total Time Spent with Patient: Total time spent is greater than 50% in coordination of care (as documented) at patient's floor/unit and/or counseling patient: Coding Level of Care Code 25357 SUB INP/OBS CARE 2/35MIN Diagnoses Sepsis A41.9 Shortness of breath R06.02 Von Willebrands disease D68.0 Elevated TSH R79.89 Pneumonia, viral J12.9 Acute respiratory failure with hypoxia J96.01
[2022-10-16] MEDS: MELATONIN 3 MG TAB PO PRN (00:22)
[2022-10-16 06:41] LABS: BUN Creatinine Ratio 32.1 (10-20); Calcium 8.7 mg/dl (8.6-10.3); Creatinine Clr Calc Pharmacy 211.5 ml/min; Est GFR (African American) 145.6 ml/min; Est GFR (Non-African American) 125.6 ml/min; Potassium 3.6 mmol/L (3.5-5.1)
[2022-10-16] MEDS: ALBUT/IPRATROP 3MG/0.5MG NEB 3 ML VIAL NEB SCH (06:56)
[2022-10-16] MEDS: ALBUT/IPRATROP 3MG/0.5MG NEB 3 ML VIAL NEB PRN (08:45)
[2022-10-16] MEDS ORDERED: AZITHROMYCIN 250 MG TAB PO SCH (09:00)
[2022-10-16] MEDS ORDERED: predniSONE 20 MG TAB PO SCH (09:00)
[2022-10-16] MEDS: cefTRIAXone SODIUM 2,000 MG in DEXTROSE 5% AD-VAN 50 ML IV SCH (09:06)
--- NOTE | 2022-10-16 13:25 | Discharge Summary ---
Date of Service October 16, 2022 Admission HPI Per Admitting Provider 32-year-old female past medical history significant for von Willebrand's disease, anxiety presented to the ER for shortness of breath that has developed over the last 48 hours. She tried her albuterol inhaler at home, however, this provided very short relief. She also notes that she has a pulse ox at home, and went down into the mid 80s with ambulation. Due to this, she reported to the ER. In the ER patient was noted to be tachycardic, saturating to 90% on room air. Received IV methylprednisolone and albuterol nebulizers by ER provider, as well as 1 L of saline. Lab work notable for WBC count of 12.45 with neutrophilic predominance, magnesium 1.6, TSH 7.570 with a free T4 of 0.83. UA without evidence of infection, respiratory bio fire positive for rhino enterovirus. Chest x-ray performed without obvious focal consolidation. Hospitalist service was consulted for ongoing dyspnea. Patient reports a history of smoking daily starting at age 15, and quitting about 3 months ago. She denies any known history of asthma, but does endorse that she has had profound wheezing and trouble breathing in the past with viral infections. She notes that she does not have insurance and is worried about the cost of escalated imaging such as CT scan. She denies chest pain, abdominal pain, nausea. She does endorse fevers at home in the last couple of days. Discharge Data Allergies Allergy/AdvReac Type Severity Reaction Status Date / Time Penicillins Allergy Intermediate Rash Verified 03/17/21 00:58 Sulfa (Sulfonamide Allergy Intermediate Rash Verified 03/17/21 00:58 Antibiotics) Consultations 10/13/22 05:41 ED Decision to Admit Stat Ordered Studies 10/13/22 08:47 CT chest without contrast [CT chest diagnostic wo con] Stat Hospital Course (1) Sepsis: Elevated WBC count and tachycardia, meets criteria for sepsis. Suspected secondary to pulmonary infection, possibly 2/2 rhinoenterovirus infection Lactic acid was initially elevated at 6, now down to 1 Discontinued IV fluids Chest x-ray and CT chest show pneumonia Covered with ceftriaxone and azithromycin for community-acquired pneumonia Clinically improving Continue DuoNebs Discontinue IV Solu-Medrol Start p.o. prednisone tomorrow (2) Shortness of breath: The patient is more short of breath this morning with bibasilar crackles She got several liters of IV fluids since admission She is most likely volume overloaded Ordered a dose of 40 mg of IV Lasix She had very good diuretic and clinical response to Lasix Check BMP in a.m. (3) Von Willebrands disease: History of, would be highly unlikely to have PE with Hx vWD (4) Elevated TSH: TSH elevated but FT4 normal on ER labwork; defer levothyroxine to PCP. (5) Pneumonia, viral: Viral panel positive for entero-/rhinovirus Chest x-ray and CT chest suggestive of pneumonia Supportive treatment Cover with IV ceftriaxone and azithromycin for bacterial superimposition (6) Acute respiratory failure with hypoxia: Secondary to pneumonia Required oxygen on admission Was short of breath Improving with IV antibiotics Short of breath today due to fluid overload Improved with IV Lasix (7) Morbid obesity with BMI of 50.0-59.9, adult: BMI 55.1 (8) Rhinovirus infection: (9) Former tobacco use: Discharge Plan Discharge Items Patient Disposition: Home - Self-Care Reason For Visit: Respiratory infection Discharge Diagnosis: 1. rhinovirus infection with resulting acute bronchitis / viral pneumonia 2. question of underlying asthmatic condition 3. probable pulmonary edema (water build-up in lungs) - resolved 4. abnormal TSH (thyroid function test) - repeat levels needed next 1-2 months Activity: As commented below Activity Comment: gradually increase activities over the next 7-10 days Non-emergency contact: Primary Care Provider and Ict Project Manager Call non-emergency contact if: you have any medication questions and your symptoms worsen Follow-up/Referrals: Kash Brennan CRNP [Primary Care Provider] - 10/23/22 8:20 am (Please arrive 15 minutes prior to appointment time. If you need to change or cancel this appointment please call the office to reschedule) Rashad Madden PA-C [Hospitalist] - 10/22/22 1:45 pm (Pulmonary appointment [address] Please arrive 15 minutes prior to appointment time. If you need to cancel or change your appointment please call [phone]) Diet: Regular Addtl Attending Provider Instructions: Ms Church, You were hospitalized for severe shortness of breath. You tested positive for a common respiratory virus called "rhinovirus." In many cases rhinovirus infection can cause significant acute bronchitis. It can also cause viral pneumonia. Your CT scan showed the presence of both bronchitis & pneumonia from the rhinovirus. You were treated with IV steroids, nebulizer treatments, diuretics, and antibiotics. The latter was used in the event you had bacterial infection in the lungs in addition to the rhinovirus. You improved with the above measures. Recommendations - 1. prednisone taper - start 10/17/22; take with food. 2. albuterol via spacer device (see handout on spacers) - 2 puffs every 4 hours as needed for cough/wheeze/shortness of breath 3. azithromycin 250mg x 1 on 10/17/22 then your antibiotics are complete 4. Breo inhaler - 1 puff once daily; rinse your mouth with water and spit out after each use. This is a "controller agent" for your bronchial condition. This may help prevent additional episodes of bronchitis this spring since you had a rough winter with recurrent respiratory infections. The Breo is a combination of inhaled steroid with long-acting albuterol. 5. May use [id number] mucinex up to 1200mg twice daily as needed for cough/congestion. 6. please see [facility] to determine if you have underlying lung disease (asthma, etc). They may recommend pulmonary function tests ("PFTs"), etc. 7. you will need a repeat CT scan of the chest in the next few months to recheck the swollen glands present. The swollen glands are likely due to the viral infection you currently have but it will be important to repeat the imaging. 8. have repeat thyroid function tests (TSH, free T4, etc) in 6 weeks as it looks like you may have early hypothyroidism (underactive thyroid gland). Follow-up - see separate section Return to [facility] if - * you have recurrent fevers over 100 degrees * you have worsening shortness of breath despite taking all of the above medications * you have chest pain * you have intractable/persistent wheezing * any other concerns It was our pleasure to care for you at [facility]! -Dr Fairchild Pending Studies at Discharge: Yes Studies:: blood cultures, but thus far negative Stand-Alone Forms: My [facility], Work/School Release, Smoking Cessation Medications and DC Order Prescriptions: New azithromycin 250 mg Tablet 250 mg PO ONCE Qty: 1 0RF Rx Instructions: take on 10/17/22. fluticasone furoate-vilanterol [Breo Ellipta] 100-25 mcg/dose Blister With Device 1 puff inhalation DAILY Qty: 1 0RF prednisone 10 mg tablet 10 mg PO DIRECTED Qty: 23 0RF Rx Instructions: start 10/17/22: 4 tabs days 1/2; 3 tabs days 3-5; 2 tabs days 6/7; 1 tab days 8/9. take with food. Changed albuterol sulfate 90 mcg/actuation HFA aerosol inhaler 2 puff INHALATION Q4H PRN (Reason: Shortness Of Breath Or Wheezing) Qty: 1 0RF Rx Instructions: use with spacer device Discharge Orders: Discharge Order (Routine); Ordered 10/16/22 Ordered By: Zak Capps/Other Patient Handouts: Using an Inhaler with a Spacer Admission Data Admit Date/Time: 10/13/22 05:57 Attending Provider: Zak Fairchild Admit Provider: Rafia Jordan Primary Care Provider: Kash Brennan Other Providers: Rafia Jordan Other Interventions: Discharge Summary Assessment (RN) Last Done: 10/16/22 17:36 Coding Diagnoses Sepsis A41.9 Shortness of breath R06.02 Von Willebrands disease D68.0 Elevated TSH R79.89 Pneumonia, viral J12.9 Acute respiratory failure with hypoxia J96.01 Morbid obesity with BMI of 50.0-59.9, adult E66.01; Z68.43 Rhinovirus infection B34.8 Former tobacco use Z87.891
[2022-10-16] MEDS ORDERED: FUROSEMIDE 20 MG TAB PO STA (13:26)
[2022-10-16] MEDS ORDERED: MAGNESIUM OXIDE 400 MG TAB PO STA (13:27)
[2022-10-16] MEDS ORDERED: POTASSIUM CHLORIDE CRTAB 20 MEQ TABCR PO STA (13:27)
[2022-10-16] MEDS ORDERED: FLUTICASONE/VILANTEROL 100/25MCG 14 PUFFS/INHALER INH SCH (13:45)
== END 2022-10-16 18:20 | disposition home or self-care (01) | DRG 871 ==
LOC: ED 01:20 → SUATTDRO 05:57 → 4W 05:57